=== PATIENT | female | born 1945 | race Caucasian/White ===

== ENCOUNTER 2016-11-21 10:02 | Inpatient (IN) | payer MEDICARE, BC ==
[~2016-11-21] VITALS: Ht 160 cm; Wt 85.2 kg
[2016-11-21] MEDS ORDERED: LEVO-86 PO (10:53)
[2016-11-21] MEDS ORDERED: ENAL10TA PO (10:53)
[2016-11-21] MEDS ORDERED: OXYC30TA PO (10:53)
[2016-11-21] MEDS ORDERED: CYCL1TAB29 PO (10:53)
[2016-11-21] MEDS ORDERED: NEXI40CA PO (10:53)
[2016-11-21] MEDS ORDERED: METO100T PO (10:53)
[2016-11-21] MEDS ORDERED: CYMB60CA PO (10:53)
--- NOTE | 2016-11-23 12:32 | MH ---
cc: CHRIS GARCIA MD DATE OF ADMISSION 11/29/2016 ADMITTING DIAGNOSIS Severe osteoarthritis of the left shoulder, incomplete rotator cuff tear of left shoulder, pain left shoulder. HISTORY The patient is a 71-year-old white female who has had a rather lengthy history of pain involving her left shoulder. Her history extends back at least 12 years when the patient had noted the abrupt onset of pain about her shoulder area unrelated to injury or unusual activity. She had undergone initial medical evaluation with her primary care physician Dr. Ole Miller who treated the patient with cortisone injection that did prove to be of some benefit. For several years thereafter the patient seemed to be doing quite well until she experienced a recurrent episode of similar pain, returning to her primary care physician with a repeat cortisone injection completed and again the patient describing a trend of improvement. She was doing well until the past two years when she began to note recurrent episodes of pain generalized about her shoulder area radiating throughout her upper arm. She returned to Dr. Miller and at that time indicated that he did not feel repeat injection would be in order and recommended that the patient proceed with orthopedic evaluation. She was subsequently seen by the undersigned physician in March of 2015 and at that time reported that she had been alternating between heat and ice application, as well as taking Aleve without significant benefit being noted. Her x-ray studies did note degenerative changes with narrowing about the inferior aspect of the glenohumeral joint and hypertrophic bony reaction along the inferior margin of the humeral head and posterior glenoid erosion. Findings and treatment options were reviewed with the patient at that time. A recommendation was thus made to proceed with further diagnostic evaluation. The patient subsequently underwent an MRI scan the results of which identified moderate to severe glenohumeral joint osteoarthritis with an effusion, synovitis and subchondral marrow edema and a large moderate grade partial rotator cuff tear measuring 2.4 x 2.6 cm involving 60% of the articular surface of the distal supraspinatus and infraspinatus tendons. Findings were reviewed with the patient at that time. The pros and cons of continuing with conservative management versus operative intervention were outlined. Emphasis was made regarding the fact that the decision to proceed with surgery would be left entirely to the patient's discretion. At that time the patient was not quite ready to consider such treatment and elected to continue with conservative management. She returned to the office in October of this year reporting that she was becoming progressively more symptomatic with pain with associated limitations of mobility that began to effect all activities of daily living. 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 Current x-ray studies revealed severe osteoarthritis with prominent hypertrophic reaction about the inferior aspect of the humeral head. Findings and treatment options were reviewed. The patient did undergo a CT scan of the left shoulder with findings reporting a moderate grade partial thickness articular-sided tear of the distal supraspinatus tendon that was unchanged from previous MRI scan, moderate to severe osteoarthritis was again seen about the humeral joint and a slap tear appearing chronic in nature. There was mild to moderate osteoarthritis of the acromioclavicular joint. Findings were again reviewed and at that time the patient felt that she was ready to proceed with operative intervention for which recommendation was made to proceed with a reverse shoulder arthroplasty. The patient was in full agreement to this recommendation and thus scheduled for admission at this time in order that the above be accomplished. She is left-hand dominant. PAST MEDICAL HISTORY Her past medical history, hospitalizations and surgeries have included: 1. Abdominal hysterectomy with bilateral oophorectomy 2. Subsequent laparotomy for release of abdominal adhesions 3. Decompressive laminectomy of the lumbosacral spine 4. Bilateral arthroscopic surgery of the knees x2 5. Laparoscopic cholecystectomy 6. Multiple bile duct stone excision 7. Tonsillectomy and adenoidectomy 8. Colonoscopy 9. Bilateral cataract surgery with intraocular lens implants 10. Medical evaluation for cardiac status. The patient's medical illnesses include: 1. Hypothyroidism 2. Hypertension 3. Acid reflux 4. Spasm of her lower extremities CURRENT MEDICATIONS 1. Metoprolol 100 mg twice daily 2. Synthroid 277 mcg daily 3. Enalapril 10 mg daily 4. Cymbalta 60 mg daily 5. Nexium 40 mg daily 6. Oxycodone 30 mg four times daily 7. Cyclobenzaprine 10 mg three times daily p.r.n. ALLERGIES The patient describes a drug allergy to both SULFA AND PENICILLIN WHICH HAS BEEN ASSOCIATED WITH SWELLING AND HIVES REACTION, WELL TIGHTNESS OF HER THROAT. REVIEW OF SYSTEMS She does wear glasses. There has been a history of migraine headaches in years past. No seizure or syncope. Occasional sinus congestion. No epistaxis. Auditory acuity intact. No tinnitus. No bleeding gums or dysphagia. She wears upper dentures. Denies cough, shortness of breath, upper respiratory infection. There is a positive history of pneumonia. No tuberculosis. No angina. Appetite is good. Bowel movements are regular. There has been no hepatitis. There is a positive history of ulcers and hemorrhoids, status post cholecystectomy. Prior history of urinary tract infection. No kidney stones. Fracture of the right thumb treated by cast immobilization. No psychiatric illness. Her remaining review of systems is unremarkable and noncontributory. FAMILY HISTORY The patient has been a for less than one year, her at 83 years of age with a history of esophageal cancer. She has three sons all of whom are described as being in good health. Family history is otherwise positive for diabetes, heart disease, lung and throat cancer and peripheral neuropathy. SOCIAL HISTORY The patient completed a high school education. She denies active use of tobacco for the past 13 years, but had been a 40 pack-year user prior to that time. Denies ethanol consumption. PHYSICAL EXAMINATION Height 5 feet 3 inches, weight 193 pounds. An alert, oriented and responsive 71-year-old white female who sits quietly upon examination table with no obvious distress. HEAD, EYES, EARS, NOSE AND THROAT: Pupils are equally round and reactive to light. Extraocular movements full. Sclerae clear. External nares clear. External auditory canals clear. Edentulous. Mucous membranes pink and moist. Pharynx clear. NECK: Supple. Active range of motion without appreciable pain. Carotid pulse bilaterally. Trachea midline. Thyroid without enlargement. LUNGS: Clear to auscultation and percussion. No CVA tenderness. No discomfort throughout the dorsal lumbar spine. HEART: Regular rhythm. No murmur or gallop. ABDOMEN: Soft, nontender. Bowel sounds present. PELVIC: Per primary care physician. EXTREMITIES: Left shoulder, there is minimal tenderness about the anterior aspect of the left shoulder. Limited and restricted mobility of the shoulder joint in all ranges assessed with crepitation elicited. Drop arm test is positive. Carreon sign positive. No significant weakness of internal or external rotation. Ch[employer] Grinder strength intact. Sensory intact. NEUROLOGIC: Cranial nerves II-XII grossly intact. IMPRESSION Severe osteoarthritis of the left shoulder, incomplete rotator cuff tear left shoulder, pain left shoulder. PLAN Left reverse shoulder arthroplasty. The nature of the planned surgical procedure, the potential complications and risks associated, the expectations of surgery and the consent form have been thoroughly reviewed with the patient prior to his admission to the hospital. Jhoana has indicated her full understanding regarding all of the above and given consent to proceed with treatment as outlined. Medical evaluation and clearance for surgery completed by her primary care physician Dr. Ole Miller, cardiology clearance per Dr. Orlando. MD AROLDO Oneill/MARTY /11:58 AM /12:14 PM
[2016-11-29] MEDS ORDERED: CHLORHEXIDINE GLUCONATE 2 % 1 PACK (2 CLOTHS) TOPICAL PRN (06:00)
[2016-11-29] MEDS ORDERED: INSULIN HUMAN REGULAR 1,000 UNITS/10 ML VIAL SQ PRN (06:00)
[2016-11-29] MEDS ORDERED: POVIDONE IODINE 5% (ANTISEPSIS KIT) 4 APPLICATIONS EACH NARE PRN (06:00)
[2016-11-29] MEDS ORDERED: SODIUM CHLORID 0.9% 500 ML IV PRN (06:00)
[2016-11-29] MEDS ORDERED: LACTATED RINGER'S 1000 ML IV PRN (06:00)
[2016-11-29] MEDS ORDERED: METOPROLOL TARTRATE 25 MG TAB PO PRN (06:00)
[2016-11-29] MEDS ORDERED: POVIDONE IODINE 7.5% SCRUB 118 ML BOTTLE TOPICAL SCH (06:00)
[2016-11-29] MEDS ORDERED: VANCOMYCIN 1000 MG/NS 250 ML (for <70 kg) IV SCH ×2 (06:00)
[2016-11-29 06:12] VITALS: BP 154/75; PULSE 77; RESP 18; TEMP 99.2; O2SAT 97
[2016-11-29] MEDS ORDERED: GENTAMICIN SULFATE 80 MG/2 ML VIAL ONE (06:53)
[2016-11-29] MEDS ORDERED: ceFAZolin INJ 1,000 MG VIAL ONE (06:53)
[2016-11-29] MEDS ORDERED: FAMOTIDINE 20 MG/2 ML VIAL ONE (07:09)
[2016-11-29] MEDS ORDERED: MIDAZOLAM HCL 2 MG/2 ML VIAL ONE (07:10)
[2016-11-29] MEDS ORDERED: DEXAMETHASONE SOD PHOS 4 MG/ML VIAL ONE (07:10)
[2016-11-29] MEDS ORDERED: TRANEXAMIC ACID 1 GM PRIOR TO PROCEDURE IV SCH ×2 (07:30)
[2016-11-29] MEDS ORDERED: ROPIVACAINE 0.5% PF INJ 30 ML VIAL NERV BLOCK ONE (08:28)
[2016-11-29] MEDS ORDERED: TRANEXAMIC ACID INJ 1,000 MG/10 ML AMP IV ONE (10:03)
[2016-11-29] MEDS ORDERED: TRANEXAMIC ACID 1 GM POST-OP IV SCH ×2 (10:30)
[2016-11-29] MEDS ORDERED: DO NOT ADM ANY ANTICOAGULANT DRUGS PRN (11:00)
[2016-11-29] MEDS ORDERED: Post-op Orders (for Pharmacy) MISC XX ONE (11:00)
[2016-11-29] MEDS ORDERED: TRANEXAMIC ACID INJ 1,000 MG in SODIUM CHLORIDE 0.9% INJ 100 ML IV SCH (11:00)
[2016-11-29] MEDS ORDERED: ZOLPIDEM TARTRATE 5 MG TAB PO PRN (11:00)
[2016-11-29] MEDS ORDERED: BISACODYL 10 MG SUPP RECTAL PRN (11:00)
[2016-11-29] MEDS ORDERED: SODIUM CHLORIDE 0.9% FLUSH 5 ML FLUSH IVF PRN (11:00)
[2016-11-29] MEDS ORDERED: MISCELLANEOUS PHARMACY INFORMATION XX ONE (11:00)
[2016-11-29] MEDS ORDERED: ONDANSETRON HCL 4 MG/2 ML VIAL IVP PRN (11:00)
[2016-11-29] MEDS ORDERED: NALOXONE HCL 0.4 MG/ML AMP IV PRN (11:00)
[2016-11-29] MEDS ORDERED: ACETAMINOPHEN/HYDROcodone 325 MG/5 MG TAB PO PRN (11:00)
[2016-11-29] MEDS ORDERED: MORPHINE SULFATE 4 MG/ML INJ ONE (11:07)
[2016-11-29] MEDS ORDERED: fentaNYL CITRATE 250 MCG/5 ML AMP ONE (11:07)
[2016-11-29] MEDS ORDERED: *morphine SULFATE 8 MG/ML PERIprocedure ONLY ONE ×2 (11:10→19:30)
[2016-11-29] MEDS: MORPHINE SULFATE 30 MG/30 ML PCA IV SCH (11:36)
[2016-11-29] MEDS: DEXT 5%-NACL 0.45% 1000 ML INJ 1,000 ML IV SCH (11:36)
--- NOTE | 2016-11-29 12:00 | RADRPT ---
EXAM DATE/TIME: 11/29/2016 11:17 [facility] COMPARISON: No previous studies available for comparison. INDICATIONS : Post op left shoulder MEDICAL HISTORY : None. SURGICAL HISTORY : None. ENCOUNTER: Initial ACUITY: 1 day PAIN SCORE: 4/10 LOCATION: Left shoulder FINDINGS: The patient is status-post total shoulder arthroplasty. Prosthesis is well seated. Alignment is alek tomic. A fracture is not appreciated. CONCLUSION: Status-post total shoulder arthroplasty. Seng Hicks MD FACR on November 29, 2016 at 11:53 Board Certified Radiologist. This report was verified electronically.
--- NOTE | 2016-11-29 12:04 | MP ---
cc: CHRIS GARCIA M.D. DATE OF SURGERY: 11/29/2016 PREOPERATIVE DIAGNOSIS Severe osteoarthritis of the, left shoulder. Incomplete rotator cuff tear, left shoulder. Pain, left shoulder POSTOPERATIVE DIAGNOSIS Severe osteoarthritis of the, left shoulder. Incomplete rotator cuff tear, left shoulder. Pain, left shoulder PROCEDURE Left reverse shoulder arthroplasty. SURGEON Nura ANESTHESIA General endotracheal. INDICATIONS A 71-year-old white female with a lengthy history of left shoulder pain extending back at least 12 years when the patient noted the abrupt onset of pain about her shoulder area unrelated to injury or unusual activity. She had undergone initial evaluation with her primary care physician, Dr. Ole Miller, who treated the patient with cortisone injection that did prove to be of some limited benefit. For several years thereafter the patient seemed to be doing reasonably well until she experienced a recurrent episode of similar pain, returning to her primary care physician with repeat cortisone injection completed and again a trend of improvement. The patient was doing well until the past two years when she began to note recurrent episodes of pain generalized about her shoulder area radiating into her upper arm. She returned to her primary care physician who indicated he did not feel repeat injections would be in order and recommended that she proceed with orthopedic evaluation. The patient was subsequently seen by the undersigned physician in March 2015 and at that time she indicated she was alternating between heat and ice application as well as taking Aleve without significant benefit being noted. Her x-ray studies did note degenerative changes about the glenohumeral joint with hypertrophic bony reaction along the inferior margin of the humeral head and posterior glenoid erosion. Findings and treatment options were reviewed with the patient at that time and recommendation was made to proceed with further diagnostic evaluation. An MRI scan identified moderate to severe glenohumeral joint osteoarthritis with an effusion, synovitis, subchondral marrow edema and a rather large moderate grade partial rotator cuff tear measuring 2.4 x 2.6 cm involving 60% of the articular surface of the distal supraspinatus and infraspinatus tendons. These findings were reviewed. The pros and cons of continuing with conservative management versus operative intervention were outlined with emphasis being made that the decision to proceed with surgery would be left entirely to the patient's discretion. At that time the patient was not quite ready to consider such treatment and elected to continue with conservative management. She returned to the office in October of this year reporting that she was becoming progressively more symptomatic with pain associated with limited mobility that began to effect all activities of daily living. 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 Her current x-ray studies revealed severe osteoarthritis with hypertrophic bony reaction about the inferior aspect of the humeral head. A subsequent CT scan identified a moderate grade partial thickness articular-sided surface tear of the supraspinatus tendon unchanged from previous MRI scan with moderate to severe osteoarthritis again identified about the humeral joint and a SLAP tear appearing chronic in nature. There was mild to moderate osteoarthritis of the acromioclavicular joint. Findings were again reviewed and at that time the patient felt she was ready to proceed with surgery as previously discussed and in compliance with her wishes she was scheduled for admission at this time in order that reverse shoulder arthroplasty be completed. FORMAT Following the induction of satisfactory general anesthesia by endotracheal intubation as completed per the Department of Anesthesia the patient was positioned upon the operating table in a modified beach-chair configuration. The left shoulder and upper extremity proper were isolated with a U-drape, thereafter being prepped with Betadine solution and draped into a sterile field in the routine manner. Prior to initiation of the actual procedure the standard timeout protocol was completed. All parameters were appropriately addressed and confirmed by operating room personnel. A standard anterior approach to the shoulder joint was initiated through a sharp skin incision along the deltopectoral interval being extended from the inferior margin of the clavicle to the axillary crease. The incision was developed through underlying subcutaneous tissue with hemostasis maintained by electrocautery. By deepening dissection the cephalic vein was identified both proximally and distally. The deltopectoral interval was thereafter developed with the vein being retracted in a medial orientation with the deltopectoral interval exposing the shoulder maintained in a slightly externally rotated posture. A limited release of the pectoralis insertion was completed with the shoulder maintained in its externally rotated orientation. The three-vessel circumflex sister vessels were exposed, isolated and secured with silk ligature and thereafter divided. The biceps tendon was thereafter identified and divided proximally. The distal stump was tenodesed to the stump of the pectoralis insertion, the excess portion of the biceps tendon being removed. With the shoulder thus oriented externally rotated the subscapularis tendon was divided in a proximal to distal orientation along the anatomical lack of the humeral head with the more medial segment being tagged with #1 Tycron suture. The humeral head was thus delivered into the wound and an entry point was created superiorly along the head of the humerus adjacent to the bicipital groove facilitating an opening into the humeral canal. Sequential rasping was accomplished from 7-13 mm and broaching thereafter followed in a similar manner. The 13 mm broach was determined to be satisfactory. Prior to the broaching process with the rasp in place the outrigger guide had been positioned in approximately 30 degrees of retroversion that facilitated resection of the humeral head. Hypertrophic bone was removed along the inferior margin of the humerus. With the 13 mm humeral broach in place the covering cap was placed and attention was redirected to the glenoid. Retractors were placed superiorly anterior inferiorly and posteriorly facilitating exposure. The stump of the biceps tendon was resected as was the glenoid labrum and the anterior and middle glenohumeral ligaments with the glenoid exposed in a 360 degree orientation. Hash hilton were placed from the 12 to 6 o'clock position and the 3 to 9 o'clock position facilitating orientation of the central portion of the glenoid. A guide pin was thus placed centrally utilizing the glenoid guide with approximately 10 degrees of inferior tilt. With the guide pin in place the step-down reamer was passed creating a central peg hole. Thereafter a 25 mm glenosphere mini baseplate was firmly seated. A 35 mm central screw was placed and thereafter peripheral locking screws were positioned, 25 mm screws being placed superiorly and inferiorly and 15 mm screws anteriorly and posteriorly. With the baseplate firmly secured a 36 mm glenosphere with maximum inferior offset was firmly seated onto the baseplate. Attention was returned to the proximal humerus. With the 13 mm trial femoral broach in place a trial reduction followed utilizing a 44 mm humeral tray with a 36 x 44 mm humeral bearing insert. The shoulder was reduced and carried through a passive range of motion, stability being demonstrated throughout the arc of mobility. An open dislocation was thereafter completed. The trial humeral components being removed the humeral canal was thoroughly irrigated and dried and thereafter the permanent 13 mm mini humeral stem was placed to which a 44 mm humeral tray with locking ring with a 36 x 44 mm humeral bearing insert attached to the humeral stem. Open reduction was completed and repeat range of motion again noted stability as previously described. Final irrigation was accomplished with hemostasis maintained. The subscapularis tendon was repaired with the #1 Tycron tagging sutures that had previously been positioned. The deltopectoral interval was re-approximated with a running 0 Vicryl suture. The remaining portion of the wound was closed in layers in the routine manner, skin margins being re-approximated with a running subcuticular 3-0 Vicryl suture over which Steri-Strips were applied. Xeroform gauze and a bulky dry sterile dressing were placed. The extremity being supported in an arm sling, anesthesia was discontinued and the patient thus transferred to a hospital bed and returned to the recovery room in satisfactory condition having tolerated her operative procedure well. Estimated blood loss was approximately 160 cc as determined per Anesthesia. All implants were of the [employer] terra cotta roofer helper. MD AROLDO Oneill/BT /10:50 AM /11:41 AM
[2016-11-29 13:01] VITALS: BP 172/75; PULSE 73; RESP 17; TEMP 95.7; O2SAT 96
[2016-11-29] MEDS: PCA - TOTAL MG MORPHINE DELIVERED PER SHIFT SCH ×2 (13:18→22:00)
[2016-11-29] MEDS ORDERED: NEOSTIGMINE 3 MG/3 ML SYR IV ONE (13:25)
[2016-11-29] MEDS ORDERED: PROPOFOL 200 MG/20 ML AMP IV ONE (13:25)
[2016-11-29] MEDS ORDERED: ePHEDrine/NS 25 MG/5 ML SYR IV ONE (13:25)
[2016-11-29] MEDS ORDERED: ONDANSETRON HCL 4 MG/2 ML VIAL IV PUSH ONE (13:26)
[2016-11-29] MEDS ORDERED: LACTATED RINGER'S 1000 ML INJ 1,000 ML IV ONE (13:26)
[2016-11-29 16:00] VITALS: BP 169/71; PULSE 80; RESP 17; TEMP 97.1; O2SAT 94
[2016-11-29 16:24] VITALS: O2SAT 98
--- NOTE | 2016-11-29 16:29 | HHI.PR ---
Objective Objective Results - Vital Signs Date Time Temp Pulse Resp B/P Pulse Ox O2 Delivery O2 Flow Rate FiO2 11/29/16 13:18 16 11/29/16 12:50 Nasal Cannula 2.00 11/29/16 11:36 22 11/29/16 06:12 99.2 77 18 154/75 97 I/O 11/28/16 11/28/16 11/28/16 11/29/16 11/29/16 11/29/16 07:00 15:00 23:00 07:00 15:00 23:00 Intake Total 120 ml Balance 120 ml Intake IV Total 120 ml # Voids 1 Physical Exam Physical Exam PHYSICAL EXAMINATION GENERAL: This is a well-developed, well-nourished female who appears to be in no acute distress. She is alert and awake, []. HEAD: Normocephalic without any lesion or mass noted. Facial features appear symmetric. EYES: Perrla, Normal eye movement, [] Icterus. [] Conj congestion. OROPHARYNGEAL: Oropharynx without erythema or edema. MOUTH/THROAT: Tongue midline []. Buccal mucosa is moist []. NECK: Supple. No nuchal rigidity or lymphadenopathy. Trachea midline without deviation. Thyroid not palpable, no bruits appreciated. CARDIAC: Regular rhythm, regular rate, S1 and S2 are heard. Murmur []; no gallops or rubs. LUNGS: Clear to auscultation bilaterally. [] wheeze, [] rhonchi or [] rale. No use of accessory muscles on inspiration or expiration. ABDOMEN: Soft, nontender, no organomegaly or masses. Bowel sounds are heard in all four quadrants. No rebound. No guarding. EXTREMITIES: [] edema. Pulses equal bilateral. [] cyanosis. NEUROLOGICAL: Patient mood and affect appropriate. Cranial nerves II through XII grossly intact. Muscle strength 5/5 in the upper and lower extremities bilaterally. Deep tendon reflexes are 2+ in the upper and lower extremities bilaterally. SKIN:Warm and moist PSYCH: Mood and affect appropriate A/P Assessment and Plan patient seen and examined please refer to full consult note for more details s/p reverse shoulder arthroplasty pain control h/o chronic pain discussed with patient discussed with Agata Maldonado MD Nov 29, 2016 16:28
--- NOTE | 2016-11-29 16:34 | MB ---
cc: GRISELDA NICHOLSON MD DATE OF 1945 DATE OF CONSULTATION 11/29/2016 REASON FOR CONSULTATION Medical management. Severe osteoarthritis of the left shoulder. The patient is currently status post a reversal left shoulder. HISTORY OF THE PRESENT ILLNESS This is a pleasant 71-year-old white female who has been struggling with her left shoulder and pain for at least 12 months. She has undergone medical evaluation and care with her PCP as well as orthopedics. She continued to seek aggressive therapy but did not get a sustained positive result from her outpatient therapy. She now has decided to have a reverse left shoulder. It is also noted in the record that she had an incomplete rotator cuff tear and her surgery is listed and left reverse shoulder arthroplasty. The patient is currently back in her room postop sitting up in the chair getting ready to eat some solid food. She is alert, oriented and cooperative. PAST MEDICAL HISTORY Medical history includes: 1. Hypothyroidism. 2. Hypertension. 3. Gastroesophageal reflux disease. 4. Muscle spasms of her lower extremities. 5. Cataracts. 6. Gallbladder disease. 7. Abdominal adhesions. 8. Arthritis. 9. Degenerative disc disease. PAST SURGICAL HISTORY 1. Abdominal hysterectomy with bilateral ooophorectomy. 2. Laparotomy for abdominal effusions. 3. Compressive laminectomy for lumbosacral spine. 4. Cholecystectomy. 5. Multiple bile duct stone incisions. 6. Tonsillectomy and adenoidectomy. 7. Colonoscopy. 8. Bilateral cataract surgery. ALLERGIES PENICILLIN AND SULFA. MEDICATIONS 1. Enalapril. 2. Cymbalta. 3. Metoprolol. 4. Flexeril. 5. Oxycodone. 6. Nexium. 7. Synthroid. SOCIAL HISTORY The patient is currently and recently from her of 50 something years. 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 Denies any alcohol or illicit drugs. FAMILY HISTORY Cancer. REVIEW OF SYSTEMS A 10 point review was obtained. Positives noted in the history of present illness which include her arthritis and her chronic pain management of the left shoulder. Bowel regimen was discussed. Other systems negative or unremarkable. PHYSICAL EXAMINATION VITAL SIGNS: Temperature is 99.2, pulse is 77, respiratory rate 18, blood pressure 154/75. Pulse oximetry 97% 2 liters nasal cannula. GENERAL: Obese white female looks to be her stated age. Sitting up, resting in a chair. She is alert and oriented and a good historian. HEENT: Atraumatic, normocephalic. Pupils equal, round, reactive to light and accommodation. No scleral icterus. NECK: Supple. HEART: Sounds S1-S2. Regular rate and rhythm. No murmurs, rubs, or gallops. She does have a minimal trace of edema in her lower extremities. They are warm and pulses are intact. LUNGS: Essentially clear anteriorly and posteriorly with no wheezes, rhonchi or rales. ABDOMEN: Soft. Round. Nondistended. Active bowel sounds. MUSCULOSKELETAL: Moves her extremities with purpose. Her shoulder is immobilized with sling. She does wiggle her fingers on command. Lower extremities moves with command and overcomes resistance. NEUROLOGIC: She is alert and oriented. A good historian. Tongue is midline. Speech is clear. Equal hand police cadet. PSYCHIATRIC: Appropriate moderate and affect. LABORATORY DATA Diagnostic data from 11/21/2016 WBC count 11.1, RBC 4.92, hemoglobin 12.7, hematocrit 38.1, platelet count 393, MCV 6.5. Coags, PT INR is 1.0. Chemistry, sodium 131, potassium 4.7, chloride 95, BUN 16, creatinine 1.01. GFR 54. Calcium 9.1. Urine is negative. No culture and sensitivity has been ordered. ASSESSMENT AND PLAN 1. Severe osteoarthritis, the patient is status post left reverse shoulder arthroplasty. 2. Hypertension. 3. Gastroesophageal reflux disease. 4. Hypothyroidism. 5. Osteoarthritis. Our plan is to monitor her for any medical management needs. Her pain management and her postoperative care will be per orthopedics. We will check her labs in the morning for any abnormals. Place her on a regular diet. Her activity will be with physical therapy, out of bed, increase mobility and activity. Sequential compression devices. Respiratory incentive spirometry. Medications have been reconciled. Currently the patient will be on her Xarelto for deep venous thrombosis prophylaxis. We will continue to monitor for any needs she has. Medications from home have been reconciled. We will monitor her vital signs for any abnormal and follow her for discharge planning. Thank you very much for this consultation. Dictated by: JAN Ortiz MD TERESO Bassett/KAYY /3:04 PM /3:34 PM
[2016-11-29] MEDS: VANCOMYCIN INJ 1,000 MG in SODIUM CHLOR 0.9% 250 ML INJ 250 ML IV SCH (16:37)
[2016-11-29 20:05] VITALS: BP 149/64; PULSE 83; RESP 18; TEMP 98.2; O2SAT 95
[2016-11-29] MEDS: SODIUM CHLORIDE 0.9% FLUSH 5 ML FLUSH IVF SCH (21:00)
[2016-11-29 21:04] VITALS: O2SAT 97
[2016-11-30] VITALS (7 sets, daily range): BP systolic 121–165; BP diastolic 58–72; PULSE 88–99; RESP 17–19; TEMP 97–99.1; O2SAT 95–98
[2016-11-30] MEDS: MORPHINE SULFATE 30 MG/30 ML PCA IV SCH (01:27)
[2016-11-30] MEDS: DEXT 5%-NACL 0.45% 1000 ML INJ 1,000 ML IV SCH ×3 (02:59→10:59)
[2016-11-30] MEDS: PCA - TOTAL MG MORPHINE DELIVERED PER SHIFT SCH ×3 (06:00→20:56)
[2016-11-30] MEDS ORDERED: HYDR-3516 PO (06:15)
[2016-11-30] MEDS ORDERED: ASPI325T PO (06:15)
[2016-11-30 06:16] LABS: HEMATOCRIT 30.9 % (35.0-46.0); REVIEW FLAG FINAL
--- NOTE | 2016-11-30 06:19 | HHI.FF ---
Face to Face Verification Diagnosis: (1) DJD of left shoulder Physical Therapy Gait training, Safety evaluation Occupational Therapy Left UE Weight Bearing: WB as tolerated Left UE Range of Motion: Active ROM Additional Instructions No external rotation > 30 degrees for initial 4 weeks post-op then may gradually progress as tolerated Nursing Dressing Changes: Daily dressing change I have seen patient Jhoana Reed on 11/30/16. My clinical findings support the need for the requested home health care services because: Limited ability to care for self High risk of falls I certify that my clinical findings support that this patient is homebound because: Post-op weakness Unsteady gait/balance Unsafe to leave home unassisted Reji Lyman MD Nov 30, 2016 06:19
[2016-11-30] MEDS: VANCOMYCIN INJ 1,000 MG in SODIUM CHLOR 0.9% 250 ML INJ 250 ML IV SCH (06:27)
[2016-11-30] MEDS: SODIUM CHLORIDE 0.9% FLUSH 5 ML FLUSH IVF SCH ×2 (09:00→19:36)
[2016-11-30] MEDS: ACETAMINOPHEN/HYDROcodone 325 MG/5 MG TAB PO PRN ×3 (09:23→19:36)
[2016-11-30] MEDS: RIVAROXABAN 10 MG TAB PO SCH (10:00)
--- NOTE | 2016-11-30 11:21 | HHI.PR ---
Subjective Remarks Resting in bed Positive facial grimace and crying secondary to her shoulder pain\ Alert oriented Patient has chronic pain and goes to the pain clinic for her pain management Afebrile (Doreen Cook) Objective Objective Results - Vital Signs Date Time Temp Pulse Resp B/P Pulse Ox O2 Delivery O2 Flow Rate FiO2 11/30/16 08:00 97.9 92 19 125/59 97 11/30/16 06:00 16 11/30/16 04:05 99.1 90 18 121/58 95 11/30/16 01:27 19 11/30/16 00:05 98.0 88 18 157/70 98 11/29/16 22:00 18 11/29/16 21:04 97 21 11/29/16 20:05 98.2 83 18 149/64 95 11/29/16 16:24 98 21 11/29/16 16:00 97.1 80 17 169/71 94 11/29/16 13:18 16 11/29/16 13:01 95.7 73 17 172/75 96 11/29/16 12:50 Nasal Cannula 2.00 11/29/16 12:15 99.6 74 15 127/62 97 Nasal Cannula 3 11/29/16 12:00 79 13 168/76 98 Nasal Cannula 3 11/29/16 11:45 74 16 155/67 98 Nasal Cannula 3 11/29/16 11:38 72 11 166/70 98 Nasal Cannula 3 11/29/16 11:36 22 11/29/16 11:30 69 16 205/79 96 Nasal Cannula 3 11/29/16 11:19 68 24 189/78 96 Nasal Cannula 3 11/29/16 11:17 72 16 192/81 97 11/29/16 11:15 72 12 204/79 96 Nasal Cannula 3 I/O 11/29/16 11/29/16 11/29/16 11/30/16 11/30/16 11/30/16 07:00 15:00 23:00 07:00 15:00 23:00 Intake Total 2226 ml 240 ml 240 ml Output Total 160 ml Balance 2066 ml 240 ml 240 ml Intake Oral 720 ml 240 ml 240 ml IV Total 306 ml Other 1200 ml Output Estimated Blood Loss 160 ml # Voids 5 5 4 # Bowel Movements 0 0 0 (Doreen Cook) Result Diagram: 11/30/16 0548 ROS General: Fatigue, Weakness, Other (10 point ROS done positives noted) HEENT: Other (pain management) Pulmonary: SOB (none) Neuro/MS: Other (left shoulder, in sling and immobilized, moves fingers without issues, chronic neuropathy pain) (Doreen Cook) Physical Exam Physical Exam PHYSICAL EXAMINATION GENERAL: This is a mild obesity female who appears to be in moderate distress. She is alert and awake, anxious over pain HEAD: Normocephalic, atraumatic OROPHARYNGEAL: Oropharynx clear NECK: Supple. Trachea midline without deviation. CARDIAC: Regular rhythm, regular rate, S1 and S2 are heard. LUNGS: Clear to auscultation bilaterally. No wheezes or rhonchi. ABDOMEN: Soft, nontender, round, no organomegaly or masses. Bowel sounds active EXTREMITIES: no edema. Pulses intact NEUROLOGICAL: Patient mood and affect mild to moderate anxiety, secondary to her pain. SKIN:Warm and moist Objective Remarks My shoulder is killing me. I am on the pain scale at a 8-9 (Doreen Cook) A/P Assessment and Plan 1. Severe osteoarthritis, the patient is status post left reverse shoulder arthroplasty. 2. Hypertension. 3. Gastroesophageal reflux disease. 4. Hypothyroidism. 5. Osteoarthritis. 6. Acute on chronic pain Patient is 24 hours out from her surgery. Pain management is uncontrolled Patient's IV out, patient has been transitioned to by mouth meds. Patient is seen on an outpatient basis with the pain clinic and takes OxyContin and oxycodone for her neuropathies. Positive for facial grimace and crying in pain with her left shoulder. Discussed with nurse. Orthopedic surgeon called for pain management, and ordered her outpatient meds to be initiated. Discharge planning for tomorrow per orthopedic. Bowel regimen Physical therapy and encourage patient to be out of bed in chair when her pain eases down. Vital signs reviewed, normal trends today, hypertension controlled with medical management Labs reviewed, hemoglobin 10.1 postop, mild anemia but no dizziness or weakness noted GERD controlled with medical management, PUD prophylaxis DVT prophylaxis with her Xarelto Discharge planning probable for tomorrow Discussed with nurse Discussed with the patient Discussed with Dr. harris, seen on her behalf (Doreen Cook) Assessment and Plan patient seen and examined sleeping, appears comfortable continue current pain control d/c i/v fluids adequate po intake anticipate discharge in am discussed with nursing staff discussed with Doreen MONTOYA (Agata Harris MD) Doreen Cook Nov 30, 2016 11:21 Agata Harris MD Nov 30, 2016 17:26
[2016-12-01] VITALS: BP 162/66; PULSE 102; RESP 16; TEMP 97.9; O2SAT 96
[2016-12-01] MEDS: ACETAMINOPHEN/HYDROcodone 325 MG/5 MG TAB PO PRN ×2 (00:39→06:55)
[2016-12-01] MEDS: PCA - TOTAL MG MORPHINE DELIVERED PER SHIFT SCH (03:53)
[2016-12-01 04:00] VITALS: BP 163/82; PULSE 105; RESP 17; TEMP 99.3; O2SAT 96
[2016-12-01 09:00] VITALS: BP 148/58; PULSE 110; RESP 18; TEMP 98.2; O2SAT 96
[2016-12-01] MEDS: SODIUM CHLORIDE 0.9% FLUSH 5 ML FLUSH IVF SCH (09:18)
[2016-12-01] MEDS: RIVAROXABAN 10 MG TAB PO SCH (09:18)
--- NOTE | 2016-12-05 17:32 | MD ---
cc: SILVIANO SOLIMAN,TAMEKA CHIU MD ADMISSION DATE: 11/29/2016 DISCHARGE DATE: 12/01/2016 ADMISSION DIAGNOSIS 1. Severe osteoarthritis of the left shoulder, 2. incomplete rotator cuff tear of the left shoulder 3. pain of the left shoulder. DISCHARGE DIAGNOSIS 1. Severe osteoarthritis of the left shoulder, 2. incomplete rotator cuff tear of the left shoulder 3. pain of the left shoulder. HISTORY The patient is a 71-year-old white female with a lengthy history of pain involving her left shoulder. Her history had extended back at least 12 years when the patient noted the abrupt onset of pain about the shoulder area unrelated to injury or unusual activity. She had undergone initial medical evaluation with her primary care physician, Dr. Silviano Soliman, who treated the patient with cortisone injection that did prove to be of some benefit. For several years thereafter the patient seemed to be doing reasonably well until she experienced recurrent pain similar in nature about the shoulder area for which she returned to Dr. Soliman and received a repeat injection and again described a trend of improvement. She was doing reasonably well until the past 2 years when she began to note recurrent pain about the shoulder area radiating into her upper arm region. She returned to Dr. Soliman and, at that time, he did not feel that repeat injections would be in order and recommended that the patient proceed with orthopedic evaluation. She was later seen by the undersigned physician in March of 2015 and at that time the patient reported that she had been alternating between heat and ice application as well as taking Aleve without significant benefit being noted. Her x-ray studies did note degenerative changes about the glenohumeral joint with hypertrophic bony reaction along the inferior margin of the humeral head and posterior glenoid erosion. Findings and treatment options were reviewed at that time. Recommendation was made to proceed with further diagnostic evaluation. The patient did undergo an MRI scan which identified moderate to severe glenohumeral joint osteoarthritis with an effusion, synovitis and subchondral marrow edema and a large moderate grade partial rotator cuff tear measuring 2.4 x 2.6 cm involving 60% of the articular surface of the distal supraspinatus and infraspinatus tendon. Findings were reviewed at that time. The pros and cons of continuing with conservative management versus operative intervention were outlined. Emphasis was made regarding the fact that the decision to proceed with surgery would be left entirely to the patient's discretion. At that time, the patient was not quite ready to proceed with operative treatment and continued with conservative management. She returned to the office in October of this year reporting that she was becoming progressively more symptomatic with pain associated with limitations of mobility that began to affect all activities of daily living. 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 Her current x-ray studies revealed severe osteoarthritis with prominent hypertrophic reaction about the inferior aspect of the humeral head. The patient underwent a CT scan of the left shoulder with findings reported, a moderate grade partial thickness articular-sided tear of the distal supraspinatus tendon unchanged from previous MRI scan and moderate to severe osteoarthritis about the humeral joint. A slap tear appeared chronic in nature. There was mild to moderate osteoarthritis of the acromioclavicular joint. Findings were again reviewed and, at that time, the patient felt she was ready to proceed with operative treatment as had previously been discussed. In compliance with her wishes, she was scheduled for admission at this time in order that reverse shoulder arthroplasty be completed, left-hand dominant. PHYSICAL EXAMINATION Her physical examination at the time of admission revealed minimal tenderness about the anterior aspect of the left shoulder. There was limited and restricted mobility of the shoulder joint in all ranges assessed with crepitation associated. Drop arm test was positive. Carreon sign positive. No significant weakness of internal or external rotation. Small Engine Technician strength intact. Sensory intact. HOSPITAL COURSE Prior to admission to the hospital, the patient had undergone medical evaluation and clearance for surgery as completed by her primary care physician, Dr. Silviano Soliman, cardiology clearance per Dr. Orlando. The patient was taken to the operating room on 11/29/16 and on that date underwent a left reverse shoulder arthroplasty which was completed in an uncomplicated manner. The patient was noted to have tolerated her operative procedure well and her postoperative course stable thereafter. She was progressively mobilized under the guidance of physical therapy with range of motion assessment about the left shoulder area but instruction to limit external rotation to no more than 45 degrees for the initial 4-6 weeks postoperatively where after she would be allowed to continue with progressive mobilization as tolerated. Hemoglobin/hematocrit assessment postoperatively was 10.1 and 30.9 respectively. Medical followup per the hospitalist service. deputy sheriff court services consulted to assist with discharge planning. Follow up examination of her surgical wound noted to be intact healing favorably, no evidence of infection. The patient had indicated her desire to be discharged home and continue her rehabilitation on an outpatient basis. Plans were finalized in this regard and, pending medical clearance, she was scheduled for discharge on the second postoperative day at which time she was noted making favorable progress with regards to her initial rehab program. She was scheduled to be seen in office followup in approximately 4 weeks. Her condition at the time of discharge stable. Prognosis favorable. Discharge medications included Hydrocodone 5/325, #50, aspirin 325 mg 1 tablet twice daily for 2 weeks, #30. MD AROLDO Oneill/ /6:31 AM /5:23 PM
== END 2016-12-01 10:15 | disposition home health service (06) | DRG 483 ==
LOC: HSDI 11-29 05:34 → N06B 11-29 12:52
PROVIDERS: ADMIT Orthopaedic Surgery; ATTEND Orthopaedic Surgery
PROC: 0RRK00Z Replacement of Left Shoulder Joint with Reverse Ball and Socket Synthetic Substitute, Open Approach (ICD-10-PCS; principal; 2016-11-29 07:16)
DX: M19.012 Primary osteoarthritis, left shoulder (principal); D64.9 Anemia, unspecified; I10 Essential (primary) hypertension; E03.9 Hypothyroidism, unspecified; G89.29 Other chronic pain; K21.9 Gastro-esophageal reflux disease without esophagitis; M65.9 Synovitis and tenosynovitis, unspecified; M75.112 Incomplete rotator cuff tear or rupture of left shoulder, not specified as traumatic; Z80.0 Family history of malignant neoplasm of digestive organs; Z87.891 Personal history of nicotine dependence; Z96.1 Presence of intraocular lens
CPT/HCPCS: 73020; 85014; 85018; 88305; 88311; 94150; C1776; J0690; J1100; J1580; J2250; J2270; J2405; J2710; J2795; J3010; J3370; J7050; J7120

== ENCOUNTER → 2016-11-21 | Outpatient (CLI) | payer MEDICARE, BC ==
[~2016-11-21] MED LIST: ASPI325T PO; CODE60 PO; CYCL1TAB29 PO; CYCL5TAB PO; CYMB60CA PO; ENAL10TA PO; HYDR-3516 PO; LEVO-86 PO; METO100T PO; NEXI40CA PO; OMEP20CA5 PO; OXYC30TA PO; PREM0.622 PO; SYNT25TA PO
[2016-11-21 11:31] LABS: AUTOMATED NEUTROPHIL # 7.2 TH/MM3 (1.8-7.7); BASOPHIL # 0.1 TH/MM3 (0-0.2); BASOPHIL % 1.3 % (0.0-2.0); EOSINOPHIL # 0.2 TH/MM3 (0-0.4); EOSINOPHIL % 1.7 % (0.0-4.0); HEMATOCRIT 38.1 % (35.0-46.0); HEMO FLAGS DIFF FINAL; LYMPH % 26.5 % (9.0-44.0); LYMPHOCYTE # 2.9 TH/MM3 (1.0-4.8); MEAN CELL VOLUME 77.6 FL (80.0-100.0); MEAN CORPUSCULAR HEMOGLOBIN 25.8 PG (27.0-34.0); MEAN CORPUSCULAR HGB CONC 33.3 % (32.0-36.0); MONO % 5.9 % (0.0-8.0); NEUT % 64.6 % (16.0-70.0); PLATELET COUNT 393 TH/MM3 (150-450); RED BLOOD COUNT 4.92 MIL/MM3 (4.00-5.30); RED CELL DISTRIBUTION WIDTH 17.9 % (11.6-17.2); WHITE BLOOD COUNT 11.1 TH/MM3 (4.0-11.0)
[2016-11-21 11:40] LABS: PROTHROMBIN TIME - PATIENT 11.6 SEC (9.8-11.6)
--- NOTE | 2016-11-21 11:58 | EKG ---
Date Performed: 11/21/2016 Time Performed: 10:33:43 PTAGE: 71 years EKG: Sinus rhythm POSSIBLE LEFT ATRIAL ENLARGEMENT BORDERLINE ECG PREVIOUS TRACING : 03/09/2009 15.06 No significant change from previous tracing noted. DOCTOR: Brandon Krishnamurthy Interpretating Date/Time 11/21/2016 11:57:14
[2016-11-21 12:07] LABS: BICARBONATE 27.3 MEQ/L (21.0-32.0); POTASSIUM 4.7 MEQ/L (3.5-5.1)
[2016-11-21 12:18] LABS: BLOOD, URINE NEG (NEG); GLUCOSE,URINE NEG (NEG); HYALINE CAST, URINE 4 /lpf (RARE); KETONE, URINE NEG (NEG); MUCUS URINE FEW /lpf (OCC); NITRITE,URINE NEG (NEG); SQUAMOUS EPITHELIAL CELL URINE <1 /hpf (0-5); URINE COLOR YELLOW (YELLW/STRAW)
[2016-11-21 12:21] LABS: COMMENT (UR) CATH-CULT NOT IND; CULTURE IF INDICATED CATH CULTURE NOT IND
--- NOTE | 2016-11-21 12:33 | RADRPT ---
EXAM DATE/TIME: 11/21/2016 12:02 [facility] COMPARISON: No previous studies available for comparison. INDICATIONS : Evaluate for pneumonia, pneumothorax or communicable disease.Preop chest for shoulder replacement jeffrey sommers on 11/29/16 MEDICAL HISTORY : None. SURGICAL HISTORY : None. ENCOUNTER: Initial ACUITY: 1 day PAIN SCORE: 5/10 LOCATION: Bilateral chest FINDINGS: PA and lateral views of the chest demonstrate the lungs to be symmetrically aerated without evidence of mass, infiltrate or effusion. The cardiomediastinal contours are unremarkable. Osseous structure s are intact. Clips are seen in the right upper quadrant the abdomen. There is a mild hiatal hernia. CONCLUSION: No acute disease. Luis Ward MD on November 21, 2016 at 12:31 Board Certified Radiologist. This report was verified electronically.
== END ==
LOC: CPRE 09:57
PROVIDERS: ATTEND Orthopaedic Surgery
DX: Z01.810 Encounter for preprocedural cardiovascular examination (principal); Z01.811 Encounter for preprocedural respiratory examination; Z01.812 Encounter for preprocedural laboratory examination; M19.012 Primary osteoarthritis, left shoulder; R94.31 Abnormal electrocardiogram [ECG] [EKG]
CPT/HCPCS: 36415; 71020; 80048; 81001; 85025; 85610; 93005